=== PATIENT | male | born 1970 | race African-American/Black ===

== ENCOUNTER 2023-06-03 12:03 | Emergency (ER) | payer BC ==
[~2023-06-03] VITALS: Ht 185.4 cm; Wt 99.8 kg
[2023-06-03 12:10] VITALS: BP 182/101; PULSE 74; RESP 16; TEMP 98; O2SAT 98
== END 2023-06-03 15:40 | disposition left against medical advice (07) ==
LOC: ER 13:18
DX: R07.9 Chest pain, unspecified (principal); I10 Essential (primary) hypertension
CPT/HCPCS: 71045; 93005; 99283